=== PATIENT | male | born 1995 | race Caucasian/White ===

== ENCOUNTER 2020-12-13 09:09 | Outpatient (REF) | payer OTHER, SELFPAY | END 2020-12-13 09:10 | disposition home or self-care (01) | LOC: HO.LAB 09:09 | PROVIDERS: Visit Provider Internal Medicine | DX: Z20.822 Contact with and (suspected) exposure to COVID-19 (principal) | CPT/HCPCS: 36415; C9803; U0003; U0005 ==

== ENCOUNTER 2021-03-17 11:00 | Outpatient (REF) | payer OTHER, SELFPAY ==
[2021-03-17 11:26] LABS: COVID-19 Test Negative (Negative)
== END 2021-03-17 11:01 | disposition home or self-care (01) ==
LOC: HO.LAB 11:00
PROVIDERS: Visit Provider Internal Medicine
DX: Z20.822 Contact with and (suspected) exposure to COVID-19 (principal)
CPT/HCPCS: 36415; 87635; C9803

== ENCOUNTER 2025-03-09 08:36 | Emergency (ER) | payer OTHER, SELFPAY ==
[2025-03-09 08:43] VITALS: BP 106/68; PULSE 71; RESP 18; TEMP 36.6; O2SAT 99; BMI 20.2
--- NOTE | 2025-03-09 09:20 | ED.GENADULT ---
HPI - General Adult General Chief complaint: Headache Stated complaint: Migraine 3 days Time Seen by Provider: 03/09/25 08:59 Source: patient Mode of arrival: ambulatory Limitations: no limitations History of Present Illness HPI narrative: This is a 29-year-old male who presents for evaluation ofHeadache, myalgias and nausea/vomiting. Patient states that he has been sick for the last 3 days. He states no fevers, chills, cough or congestion. He states gradually worsening bifrontal /circumferential headache over the last 3 days. Patient reports initially he had a 6/10 headache that has gradually worsened over the last few days, which he rates as an 8 to 9/10 at this time. He states history of headaches. He states no trauma. He states no vision changes. He reports associated photophobia. He had 3 episodes of nonbloody, nonbilious emesis over the last 24 hours. he states no associated diarrhea. He states no urinary symptoms. He states no abdominal pain. He reports decreased appetite. Related Data Previous Rx's ?Medication ?Instructions ?Recorded ondansetron 4 mg disintegrating 4 mg PO Q8H PRN nausea and 03/09/25 tablet vomiting #14 tabs Allergies Allergy/AdvReac Type Severity Reaction Status Date / Time No Known Allergies Allergy Verified 03/09/25 08:44 Review of Systems Review of Systems: ROS as per [facility] Social History Social History Smoked in Last 30 Days: No Use of substances other than those prescribed or required for medical reasons: No Advance Directives: No Advance Directives Information Provided: Yes Physical Exam ED Vital Signs: Vital Signs - 24 hr 03/09/25 08:43 Temperature 97.8 F Pulse Rate 71 Respiratory Rate 18 Blood Pressure 106/68 Pulse Oximetry 99 Oxygen Delivery Method Room Air BMI result Body Mass Index 20.2 Gen: NAD, AOx3 HEENT: NCAT, EOMI, normal conjunctiva Neck: Supple no nuchal rigidity CV: RRR Pulm: CTAB, no increased work of breathing GI: Soft, NTND, no rebound, guarding or rigidity Neuro: CN 2-12 grossly intact, no motor or sensory deficits Medications Administered Discontinued Medications Generic Name Dose Route Start Last Admin Trade Name Freq PRN Reason Stop Dose Admin Diphenhydramine HCl 25 mg 03/09/25 09:39 03/09/25 09:55 Diphenhydramine Hcl 25 Mg Capsule PO 03/09/25 09:40 25 mg ONCE ONE Administration Sodium Chloride 1,000 mls @ 999 mls/hr 03/09/25 09:15 03/09/25 09:33 Ns IV 03/09/25 10:15 999 mls/hr .Q1H1M KATHERINE Administration Ketorolac Tromethamine 15 mg 03/09/25 09:39 03/09/25 09:55 Ketorolac Tromethamine 15 Mg/Ml Vial IVPUSH 03/09/25 09:40 15 mg ONCE ONE Administration Metoclopramide HCl 10 mg 03/09/25 09:39 03/09/25 09:55 Metoclopramide Hcl 10 Mg/2 Ml Vial IVPUSH 03/09/25 09:40 10 mg ONCE ONE Administration Medical Decision Making Medical Decision Making [facility] Narrative: Differential diagnosis includes, but is not limited to viral URI, electrolyte derangement, acute kidney injury, dehydration, tension headache, migraine headche/ Patient is afebrile and hemodynamically stable on room air. Exam is benign and reassuring. Patient is treated supportively with IV fluids, Relgan, Benadryl, Tylenol and Toradol. On re-examination, patient is well-appearing and in no acute distress. There is no indication for further emergent evaluation in this otherwise well-appearing patient as above. Patient is provided written and verbal instructions, educational materials, recommendations for outpatient follow-up, prescription for Zofran, strict return precautions and teach back is performed. Patient states understanding and agreement with plan of care. Patient is discharged home in stable and improved condition. Admission/Observation Consideration of admission/observation: Escalation of care including admission/observation considered Lab Data [facility] Lab Attestation statement: I reviewed the patient's lab results. CBC and metabolic panel reassuring. Patient is positive for COVID-19 03/09/25 09:28 03/09/25 09:28 Labs: Lab Results 03/09/25 Range/Units 09: WBC 7.7 (4.8-10.8) X10*3/uL RBC 4.94 (4.60-5.80) X10*6/uL Hgb 15.0 (14.0-18.0) g/dl Hct 43.0 (42.0-52.0) % MCV 87.0 (80.0-98.0) fL MCH 30.4 (27.0-33.0) pg MCHC 34.9 (31.0-36.0) g/dl RDW 12.4 (11.0-16.0) % Plt Count 154 L (160-400) X10*3/uL MPV 10.2 (9.4-12.4) fL Immature Gran % (Auto) 0.3 (0.0-0.4) % Neut % (Auto) 61.5 (45-73) % Lymph % (Auto) 28.3 (20-40) % [place] % (Auto) 8.9 (2-11) % Eos % (Auto) 0.5 (0-4) % Baso % (Auto) 0.5 (0-2) % Lymph # (Auto) 2.2 (1.2-4.9) X10*3/uL [place] # (Auto) 0.7 (0.1-1.2) X10*3/uL Eos # (Auto) 0.0 (0.0-0.4) X10*3/uL Baso # (Auto) 0.0 (0.0-0.2) X10*3/uL Abs Immat Gran (auto) 0.02 (0.00-0.03) X10*3/uL Absolute Neuts (auto) 4.8 (2.0-8.3) x10*3/uL Absolute Nucleated RBC 0.000 (0.0-0.012) X10*3/uL Nucleated RBC % (auto) 0.0 (0.0-0.2) /100WBC Sodium 134 L (135-145) mmol/L Potassium 4.7 (3.3-5.1) mmol/L Chloride 105 (96-108) mmol/L Carbon Dioxide 17 L (22-29) mmol/L Anion Gap 17 (12-20) BUN 18 H (9-16) mg/dL Creatinine 0.92 (0.5-1.4) mg/dL Estim Creat Clear Calc 103.8 Estimated GFR > 60 Random Glucose 88 (60-115) mg/dL Calcium 9.3 (8.4-10.2) mg/dL Total Bilirubin 0.9 (0.0-1.0) mg/dL AST 33 (5-37) U/L ALT 22 (0-40) U/L Alkaline Phosphatase 83 (39-117) U/L Total Protein 7.8 (6.5-8.0) g/dL Albumin 4.2 (3.5-5.0) g/dL Influenza Type A (PCR) NEGATIVE (Negative) Influenza Type B (PCR) NEGATIVE (Negative) RSV RNA Qual (PCR) NEGATIVE (Negative) SARS-CoV-2 RNA (RT-PCR) POSITIVE A (Negative) Discharge Plan Discharge Clinical Impression: Tension headache, COVID-19 Patient Disposition: Elopement Instructions: COVID-19 (Coronavirus Disease 2019) (ED) Additional Instructions: You were evaluated in the emergency room. You were treated with IV fluids, pain medicine and anti-nausea medicine. You tested positive for COVID-19. Please keep your distance from others (especially those with weaked immune systems, heart or lung disease, the elderly, women and children) and where a mask. Please take 600mg ibuprofen with food/water every 6 hours for pain/fever. You may additionally take up to 1000mg Tylenol every 8 hours. You are given a prescription for an anti-nausea medicine. Please take as directed. Follow up with your primary care doctor in 1 week as needed. Return to the emergency room with any new concerns or symptoms. Prescriptions: New ondansetron 4 mg tablet,disintegrating 4 mg PO Q8H PRN (Reason: nausea and vomiting) Qty: 14 0RF Print Language: [place]
--- OUTSIDE RECORDS SUMMARY | 2025-03-09 09:25 | XMS_ITS | Clinical Summary ---
Author Organization [facility] Address [address] [place] [address] Care Team Providers Care Taxi Truck Driver Name Role Phone No, Pcp Primary Care Provider Unavailabl e Allergies No known active allergies Social History Tobacco Use Types Packs/Day Years Used Date Smoking Tobacco: Never Assessed Sex and Gender Information Value Date Recorded Sex Assigned at Not on file Legal Sex Male 7:26 PM EDT Gender Identity Not on file Sexual Orientation Not on file Last Filed Vital Signs Vital Sign Reading Time Taken Comments Blood Pressure 116/72 04/21/2023 7:33 PM EDT Pulse 67 04/21/2023 7:33 PM EDT Temperature 36.6 ??C (97.9 ??F) 04/21/2023 7:33 PM ED T Respiratory Rate 12 04/21/2023 7:33 PM EDT Oxygen Saturation 99% 04/21/2023 7:33 PM EDT Inhaled Oxygen Concentration - - Weight - - Height - - Body Mass Index - - Plan of Treatment Health Maintenance Due Date Last Done Comments HIV Screening 1995 Varicella Vaccines (1 of 2 - 13+ 2-dose series) 2008 Hepatitis B Vaccines (1 of 3 - 19+ 3-dose series) 2014 DTaP,Tdap,and Td Vaccines (1 - Tdap) 2017 COVID-19 Vaccine ( - 2023-2 5 season) 2024 Alcohol/Substance Use Screening 11/01/2024 Influenza Vaccine (Season Ended) 2025 RSV Vaccine (60+ years old a nd patients) (1 - 1-dose 75+ series) 2070 Pneumococcal Vaccine: Pediat kat (0-5 Years) and At-Risk Patients (6-50 Years) Aged Out No longer eligible b ased on patient's age to complete this topic Insurance [place] [phone] Care Teams Taxi Truck Driver Relationship Specialty Start Date End Date No, Pcp CINTHIA PCP - General 04/21/23
--- OUTSIDE RECORDS SUMMARY | 2025-03-09 09:25 | XMS_ITS | Referral Summary ---
Author Organization [facility] Address [address] [place] [address] Care Team Providers Care Archives Director Name Role Phone No, Pcp Primary Care [...] Mass Index - - Plan of Treatment Not on file Insurance [facility] MEDICAID Care Teams Archives Director Relationship Specialty Start Date End Date No, Pcp CINTHIA PCP - General 04/21/23
[2025-03-09 09:33] LABS: MANUAL DIFF FLAG NO
[2025-03-09] MEDS: 0.9 % Sodium Chloride 1,000 ML 999 ML IV (09:33)
[2025-03-09 09:35] LABS: Basophils Percent Auto 0.5 % (0-2); Eosinophils Percent Auto 0.5 % (0-4); Imm Gran Abs Auto 0.02 X10*3/uL (0.00-0.03); Imm Gran Pct Auto 0.3 % (0.0-0.4); Lymphocytes Absolute Auto 2.2 X10*3/uL (1.2-4.9); Lymphocytes Percent Auto 28.3 % (20-40); Mean Corpuscular HGB Conc 34.9 g/dl (31.0-36.0); Mean Corpuscular Hemoglobin 30.4 pg (27.0-33.0); Mean Platelet Volume 10.2 fL (9.4-12.4); Monocytes Absolute Auto 0.7 X10*3/uL (0.1-1.2); Monocytes Percent Auto 8.9 % (2-11); Neutrophils Absolute Auto 4.8 x10*3/uL (2.0-8.3); Neutrophils Percent Auto 61.5 % (45-73); Platelet Count 154 X10*3/uL (160-400); Red Blood Count 4.94 X10*6/uL (4.60-5.80); Red Cell Distribution Width 12.4 % (11.0-16.0); White Blood Count 7.7 X10*3/uL (4.8-10.8)
[2025-03-09 09:52] LABS: Alanine Aminotransferase 22 U/L (0-40); Albumin Level 4.2 g/dL (3.5-5.0); Alkaline Phosphatase 83 U/L (39-117); Anion Gap 17 (12-20); Aspartate Amino Transferase 33 U/L (5-37); Bilirubin Total 0.9 mg/dL (0.0-1.0); Blood Urea Nitrogen 18 mg/dL (9-16); Calcium 9.3 mg/dL (8.4-10.2); Carbon Dioxide 17 mmol/L (22-29); Chloride 105 mmol/L (96-108); Creatinine Clr Calc Pharmacy 103.8; Estimated Glomerular Filt Rate > 60; Glucose Random 88 mg/dL (60-115); Potassium 4.7 mmol/L (3.3-5.1); Sodium 134 mmol/L (135-145); Total Protein 7.8 g/dL (6.5-8.0)
[2025-03-09] MEDS: Metoclopramide HCl 10 MG/2 ML VIAL IVPUSH (09:55)
[2025-03-09] MEDS: diphenhydrAMINE HCL 25 MG CAPSULE PO (09:55)
[2025-03-09] MEDS: Ketorolac Tromethamine 15 MG/ML VIAL IVPUSH (09:55)
[2025-03-09 10:28] LABS: Influenza A PCR NEGATIVE (Negative); Influenza B PCR NEGATIVE (Negative); Resp Syncy Virus RNA Qual PCR NEGATIVE (Negative); SARS COV2 PCR INHOUSE POSITIVE (Negative)
[2025-03-09 10:45] VITALS: BP 106/68; PULSE 71; RESP 18; TEMP 36.6; O2SAT 99
[2025-03-09] MEDS: Acetaminophen 325 MG TABLET 975 MG PO (10:47)
== END 2025-03-09 10:59 | disposition left against medical advice (07) ==
PROVIDERS: Emergency Provider Emergency Medicine
DX: U07.1 COVID-19 (principal); G44.209 Tension-type headache, unspecified, not intractable
CPT/HCPCS: 0241U; 80053; 85025; 96361; 96374; 96375; 99284; J1885; J2765